=== PATIENT | male | born 1965 | race Hispanic/Latino ===

== ENCOUNTER → 2017-05-18 | Day surgery (SDC) | payer BC ==
[~2017-05-18] MED LIST: ATENOLOL50 MG PO; FENTANYL CITRATE/PF 100MCG/2 ML INJ ONE; HYOSCYAMINE SULFATE 0.5 MG/ML AMP ONE; LEVOTHYROXINE100 MC1 PO; LIDOCAINE HCL 2% LOCAL INJ 5 ML SDV VIAL INJ ONE; MIDAZOLAM HCL 2 MG/2 ML VIAL ONE; PROPOFOL IV EMULSION 10 MG/ML 50 ML VIAL ONE
--- NOTE | 2017-05-18 18:09 | Operative Report ---
DATE OF PROCEDURE: May 18, 2017 REFERRING PHYSICIAN: Dr. Carlos Vega. PROCEDURE PERFORMED: Colonoscopy and polypectomy. INDICATIONS FOR COLONOSCOPY: Colorectal cancer screening. History of bright blood per rectum. MEDICATION: Patient was done under MAC. Please see anesthesiologist's note. PROCEDURE: With patient in the left lateral decubitus position, the flexible fiberoptic Olympus colonoscope was inserted into the rectum with ease and advanced all the way to the cecum. It was then withdrawn slowly. Mucosa overlying the cecum and ascending colon appeared to be within normal limits. One polyp was snared from the transverse colon. The descending appeared to be within normal limits. One polyp was hot biopsied from the sigmoid colon. One polyp was hot biopsied from the rectum. The scope was then retroflexed into the distal rectum and small internal hemorrhoids were noted, none of which was actively bleeding. The scope was then straightened out. It was subsequently withdrawn. Patient tolerated procedure well. IMPRESSION: 1. Transverse colon polyp snared. 1. Sigmoid colon polyp hot biopsied. 2. Rectal polyp hot biopsied. 3. Internal hemorrhoids, none actively bleeding. PLAN: Follow up histology. Initiate high-fiber low-fat diet. Initiate high-fiber supplement. Start hydrocortisone suppositories 25 mg b.i.d. times 10 days, then p.r.n. Patient will need a followup colonoscopy in 3 years. Job#: [id number] EV cc:CARLOS VEGA MD
== END | disposition home or self-care (01) ==
LOC: OR 10:02
PROVIDERS: ATTEND Internal Medicine Gastroenterology
DX: Z12.11 Encounter for screening for malignant neoplasm of colon (principal); K63.5 Polyp of colon; K62.1 Rectal polyp; K64.8 Other hemorrhoids; K62.5 Hemorrhage of anus and rectum; E11.9 Type 2 diabetes mellitus without complications; G47.33 Obstructive sleep apnea (adult) (pediatric); I10 Essential (primary) hypertension; R00.1 Bradycardia, unspecified; E03.9 Hypothyroidism, unspecified; Z01.810 Encounter for preprocedural cardiovascular examination; Z98.84 Bariatric surgery status; Z68.34 Body mass index [BMI] 34.0-34.9, adult; Z86.73 Personal history of transient ischemic attack (TIA), and cerebral infarction without residual deficits
CPT/HCPCS: 45384; 45385; 93005; J1980; J2001; J2250

== ENCOUNTER → 2018-11-15 | Day surgery (SDC) | payer BC ==
[~2018-11-15] MED LIST changes: +ACETAMINOPHEN 1000 MG/100 ML IV ONE; +BUPIVACAINE 0.5%/EPI 30 ML SDV INJ ONE; +CEFOXITIN 2GM/ D5W 50ML 50 ML IV ONE; +DEXAMETHASONE SOD PHOS INJ 4 MG/ML VIAL ONE; +FEOSOL PO; -HYOSCYAMINE SULFATE 0.5 MG/ML AMP ONE; +KETOROLAC TROMETHAMINE 30 MG/ML VIAL ONE; +LEVOTHYROXINE150 MCG; +ONDANSETRON HCL INJ 2MG/ML 2ML 2 MG/ML VIAL ONE; +PROPOFOL IV EMULSION 10 MG/ML 20 ML VIAL ONE; -PROPOFOL IV EMULSION 10 MG/ML 50 ML VIAL ONE; +ROCURONIUM BROMIDE 10 MG/ML 5ML VIAL ONE; +SEVOFLURANE INHAL SOLN 250 ML PEN BTL ONE; +TRIAMTERENE/HCTZ PO
--- NOTE | 2018-11-15 08:38 | Operative Report ---
DATE OF PROCEDURE: 11/15/2018 SURGEON: Nitesh Gayle MD PREOPERATIVE DIAGNOSIS: Chronic anal fissure. POSTOPERATIVE DIAGNOSIS: Chronic anal fissure with anal stenosis. PROCEDURE: Rigid proctosigmoidoscopy 25 cm, fissurectomy, partial lateral internal sphincterotomy and anoplasty. VULNERABILITY ASSESSMENT ANALYST: None. ANESTHESIA: General. INDICATIONS AND FINDINGS: The patient is a 53-year-old male who complains of pain in the anal area for a long time. Exam revealed a posterior fissure with associated skin tags or sentinel hemorrhoids. The patient found to have stenosis in the anal canal such that the largest anal retractor would not pass. Rigid proctosigmoidoscopy 25 cm with no mucosal abnormalities except for the findings in the anus. There was a fissure posteriorly with fibrosis in the area and multiple skin tags. After the fissure was removed a V-Y anoplasty was done. TECHNIQUE: After adequate general endotracheal anesthesia, the patient was in prone leonel-knife position, the patient first had rigid proctosigmoidoscopy 25 cm. Rectal and anal exam revealed stenosis in the anal area with some skin tags and posterior anal fissure posteriorly. There were no significant large hemorrhoids seen. Rigid proctosigmoidoscopy to 25 cm revealed no mucosal abnormalities except for those in the anal canal. The perianal skin and anal canal were infiltrated with 0.5% Marcaine with epinephrine. The fibrotic scarred area was excised with associated skin tags. A V-shaped skin flap was then raised from the external skin and advanced into the anal canal defect, size of the flap was about 1.1 cm, easily filled the anal canal defect that had been created, was sutured to the anal canal mucosa using interrupted sutures of 2-0 Vicryl. The external skin, where the flap had been raised, was then closed with interrupted sutures of 2-0 Vicryl. Prior to doing the flap, a partial lateral internal sphincterotomy was done. The internal sphincter was dissected through the intersphincteric groove and internal sphincterotomy done for a distance of approximately 8 mm. After this was done, the V-Y anoplasty was done. Surgicel gauze was then placed over the suture line and sterile dressing applied. The patient tolerated the procedure well. Estimated blood loss was 15 mL. There were no complications. All counts were correct. The patient was taken to the recovery room in satisfactory condition. MD HANK Phan/MONAE /[id number]
[2018-11-15 08:55] VITALS: BP 120/77
== END | disposition home or self-care (01) ==
LOC: OR 05:14
PROVIDERS: ATTEND Surgery
DX: K60.1 Chronic anal fissure (principal); K62.4 Stenosis of anus and rectum; K64.4 Residual hemorrhoidal skin tags; E03.9 Hypothyroidism, unspecified; G47.33 Obstructive sleep apnea (adult) (pediatric); I10 Essential (primary) hypertension; Z91.19 Patient's noncompliance with other medical treatment and regimen; Z86.73 Personal history of transient ischemic attack (TIA), and cerebral infarction without residual deficits; Z01.812 Encounter for preprocedural laboratory examination; Z01.810 Encounter for preprocedural cardiovascular examination; Z98.84 Bariatric surgery status; K62.0 Anal polyp
CPT/HCPCS: 46615; 46700; 88304; 93005; J0131; J0694; J1100; J1885; J2001; J2250; J2405; J2704; J3010